=== PATIENT | female | born 2000 | race Caucasian/White ===

== ENCOUNTER 2024-07-12 04:48 | Emergency (ER) | payer SELFPAY ==
[~2024-07-12] VITALS: Ht 162.6 cm; Wt 60.0 kg
[2024-07-12 05:08] VITALS: O2SAT 100
[2024-07-12 05:41] LABS: HEMOGLOBIN. 11.7 g/dL (12.0-16.0); MEAN CORPUSCULAR HEMOGLOBIN 31.9 pg (28.0-32.0); MEAN CORPUSCULAR HGB CONC 33.5 g/dL (31.0-37.0); MEAN CORPUSCULAR VOLUME 95.4 fL (81.0-99.0); MEAN PLATELET VOLUME 8.5 fl (7.4-10.4); PLATELET 239 x1000/uL (130-400); RED BLOOD CELL COUNT 3.67 mill/uL (4.2-5.4); RED CELL DISTRIBUTION WIDTH 12.2 % (11.6-14.6); WHITE BLOOD COUNT 9.2 x1000/uL (4.5-11.0)
[2024-07-12 05:44] LABS: CHLORIDE 107 mEq/L (98-107); POTASSIUM 3.5 mEq/L (3.5-5.1); SODIUM 137 mEq/L (136-145)
[2024-07-12 05:45] LABS: CALCIUM 9.2 mg/dL (8.7-10.4); CARBON DIOXIDE 24 mEq/L (21-32)
[2024-07-12 05:46] LABS: DIFFERENTIAL COMMENT 1
[2024-07-12 05:50] LABS: CREATININE 0.9 mg/dL (0.6-1.0); GLUCOSE 110 mg/dL (70-105); UREA NITROGEN BLOOD 14 mg/dL (9-23)
[2024-07-12 05:52] LABS: ALANINE AMINOTRANSFERASE 12 IU/L (10-49); ALBUMIN 4.6 g/dL (3.2-4.8); ASPARTATE AMINOTRANSFERASE 15 IU/L (<34); BILIRUBIN DIRECT 0.2 mg/dL (<=3.0); BILIRUBIN TOTAL 0.5 mg/dL (0.1-1.0); PROTEIN TOTAL 7.4 g/dL (6.0-8.3)
[2024-07-12 06:51] LABS: PLATELET ESTIMATE NORMAL
[2024-07-12 07:51] LABS: CLARITY URINE CLEAR (CLEAR); COLOR URINE YELLOW (YELLOW); GLUCOSE URINE NEGATIVE (NEGATIVE); KETONES URINE TRACE (NEGATIVE); LEUKOCYTE ESTERASE URINE 1+ (NEGATIVE); NITRITE URINE NEGATIVE (NEGATIVE); OCCULT BLOOD URINE NEGATIVE (NEGATIVE); PROTEIN URINE TRACE (NEGATIVE); SPECIFIC GRAVITY URINE 1.028 (1.005-1.030); UROBILINOGEN URINE 0.2 E.U./dL (0.2-1.0)
[2024-07-12 08:30] LABS: MUCUS URINE TRACE /lpf (< = 2+); SQUAMOUS EPITHELIAL CELL URINE FEW /lpf (RARE/1+)
[2024-07-12 08:31] LABS: BACTERIA URINE TRACE
[2024-07-12 08:32] LABS: RBC URINE 0-2 /hpf (0-2)
[2024-07-12] MEDS: KETOROLAC 30MG/ML VIAL IM ONE (08:45)
[2024-07-12 09:41] LABS: HEMATOCRIT 35.8 % (36.0-48.0); HEMOGLOBIN 11.8 g/dL (12.0-16.0)
[2024-07-12] MEDS ORDERED: IBUP-2029 MT (09:52)
[2024-07-12 12:26] VITALS: BP 105/62; PULSE 89; RESP 18; TEMP 99.4
== END 2024-07-12 12:27 | disposition home or self-care (01) ==
LOC: ER 04:48
DX: R10.2 Pelvic and perineal pain (principal); N83.291 Other ovarian cyst, right side
CPT/HCPCS: 99285; 74176; 93976; 80076; 80048; 81003; 81025; 85025; 86850; 86900; 86901; 96372; 85014; 85018; 36415; 76830; 76856; J1885

== ENCOUNTER 2024-07-14 13:58 | Emergency (ER) | payer SELFPAY ==
[~2024-07-14] VITALS: Ht 162.6 cm; Wt 60.0 kg
[~2024-07-14 13:58] MED LIST: IBUP-2029 MT
[2024-07-14 14:07] VITALS: BP 110/70; PULSE 98; RESP 18; TEMP 98.6; O2SAT 99
== END 2024-07-14 17:39 | disposition home or self-care (01) ==
LOC: ER 13:58
DX: N83.209 Unspecified ovarian cyst, unspecified side (principal)
CPT/HCPCS: 99281